=== PATIENT | female | born 1940 | race Caucasian/White ===

== ENCOUNTER 2016-05-06 12:20 | Emergency (ER) | payer OTHER ==
[~2016-05-06] VITALS: Ht 160 cm; Wt 74.1 kg
[2016-05-06 13:36] VITALS: BP 136/56
[2016-05-06] MEDS ORDERED: traMADol HCL 50 MG TAB PO ONE (14:30)
== END 2016-05-06 15:13 | disposition home or self-care (01) ==
LOC: ER 12:20 → EDBD 12:20 → ER 15:13
DX: S20.219A Contusion of unspecified front wall of thorax, initial encounter (principal); V49.49XA Driver injured in collision with other motor vehicles in traffic accident, initial encounter; Y93.89 Activity, other specified; Y99.8 Other external cause status; Y92.410 Unspecified street and highway as the place of occurrence of the external cause
CPT/HCPCS: 71020; 93005

== ENCOUNTER 2017-07-18 15:05 | Emergency (ER) | payer OTHER ==
[~2017-07-18] VITALS: Ht 162.6 cm; Wt 72.6 kg
[2017-07-18 15:23] VITALS: BP 158/51
[2017-07-18] MEDS ORDERED: TETRACAINE HCL 0.5% OPTH(EYE) SOLN 4ML EACHEYE ONE (16:30)
[2017-07-18] MEDS ORDERED: FLUORESCEIN SOD 1 MG TEST STRIP OP ONE (16:30)
== END 2017-07-18 17:05 | disposition home or self-care (01) ==
LOC: ER 15:05
DX: T15.91XA Foreign body on external eye, part unspecified, right eye, initial encounter (principal); E11.9 Type 2 diabetes mellitus without complications; I10 Essential (primary) hypertension; Z87.821 Personal history of retained foreign body fully removed; X58.XXXA Exposure to other specified factors, initial encounter; Y93.89 Activity, other specified; Y92.89 Other specified places as the place of occurrence of the external cause; Y99.8 Other external cause status